=== PATIENT | female | born 1945 | race Caucasian/White ===

== ENCOUNTER → 2018-08-17 12:47 | Outpatient (CLI) | payer MEDICARE, SELFPAY ==
--- NOTE | 2018-08-17 | DI.RAD.S_ITS ---
PROCEDURE: FL UPPER GI SERIES INDICATIONS: DUODENAL ULCER COMPARISON: None. 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 No suspicious abdominal calcifications. Visualized solid organ contours appear normal. Bony structures appear unremarkable. Surgical clips are noted in the region of gallbladder fossa. Vascular surgery coils are noted in right upper quadrant abdomen just lateral to L1-2 level. Esophagus: There is normal esophageal peristalsis. No strictures, extrinsic mass effects, or diverticula. No elicited gastroesophageal reflux. No hiatal hernia. Stomach: Evaluation of stomach lumen is limited due to limited patient mobility. Stomach is normally distensible, without extrinsic mass effects. Pylorus demonstrates normal single-contrast morphology. Narrowing and slightly deformed appearance of first and second portion of duodenum is seen, which may represent scarring secondary to patient's history of duodenal ulcer. There is ready transit of contrast through the gastric outlet into the small bowel. IMPRESSION: 1. Slightly limited study due to patient's poor mobility. 2. Deformity involving the first and second portion of duodenum, likely represent scarring from prior duodenal ulcer. No gross ulceration is noted on the current study. No contrast extravasation or extraction. No significant gastroesophageal reflux. Dictated by: Lino Martinez M.D. on 08/17/2018 at 14:52 Approved by: Lino Martinez M.D. on 08/17/2018 at 14:55
== END ==
DX: K26.9 Duodenal ulcer, unspecified as acute or chronic, without hemorrhage or perforation (principal)
CPT/HCPCS: 74240

== ENCOUNTER → 2018-08-21 08:06 | Outpatient (REF) | payer MEDICARE, SELFPAY ==
[2018-08-21 08:40] LABS: BUN Creatinine Ratio 7.5 (6-22); Blood Urea Nitrogen 3 mg/dL (7-17); Calcium 7.8 mg/dL (8.4-10.2); Carbon Dioxide 26 mmol/L (22-32); Chloride 100 mmol/L (98-107); Estimated Glomerular Filt Rate > 60.0 mL/min (>60); Glucose 94 mg/dL (80-110); HEMOLYSIS < 15 (0-50); Sodium 134 mmol/L (137-145)
[2018-08-21 08:47] LABS: Hematocrit 26.5 % (36-46); Hemoglobin 8.7 g/dL (12.0-16.0); Mean Corpuscular HGB Conc 32.8 % (30-36); Mean Corpuscular Hemoglobin 28.7 PG (26-34); Mean Corpuscular Volume 87.5 fL (80-100); Platelet Count 177 X10^3/uL (150-400); Red Blood Cell Count 3.03 X10^6/uL (4.0-5.2); Red Cell Distribution Width 24.1 % (11.6-14.8)
[2018-08-21 09:00] LABS: Add Manual Diff / Slide Review YES; White Blood Cell Count 0.7 X10^3/uL (4.5-11.0)
[2018-08-21 09:01] LABS: Potassium 2.3 mmol/L (3.4-5.1)
[2018-08-21 09:35] LABS: Anisocytosis 2+; Neutrophils Absolute Manual 196 /uL (3000-5900); Poikilocytosis 2+; Total Cells Counted 50
== END ==
LOC: LAB 08:06
PROVIDERS: Visit Provider Nurse Practitioner Family
DX: E86.0 Dehydration (principal); I10 Essential (primary) hypertension
CPT/HCPCS: 80048; 85025

== ENCOUNTER → 2018-08-23 17:33 | Outpatient (REF) | payer MEDICARE, SELFPAY ==
[2018-08-23 17:53] LABS: Alanine Aminotransferase 25 IU/L (9-52); Albumin 2.1 g/dL (3.5-5.0); Albumin Globulin Ratio 0.9 (1.0-2.8); Alkaline Phosphatase 93 U/L (38-126); Aspartate Aminotransferase 21 IU/L (14-36); Bilirubin Total 0.9 mg/dL (0.2-1.3); Blood Urea Nitrogen 4 mg/dL (7-17); Carbon Dioxide 24 mmol/L (22-32); Chloride 102 mmol/L (98-107); Estimated Glomerular Filt Rate > 60.0 mL/min (>60); Globulin 2.3 g/dL (1.7-4.1); Glucose 81 mg/dL (80-110); HEMOLYSIS 42 (0-50); Potassium 3.3 mmol/L (3.4-5.1); Sodium 132 mmol/L (137-145); Total Protein 4.4 g/dL (6.3-8.2)
== END ==
LOC: LAB 17:33
PROVIDERS: Visit Provider Nurse Practitioner Family
DX: E87.6 Hypokalemia (principal); I48.91 Unspecified atrial fibrillation
CPT/HCPCS: 80053

== ENCOUNTER → 2018-10-02 08:44 | Outpatient (REF) | payer MEDICARE, SELFPAY ==
[2018-10-02 10:00] LABS: INR 1.2 (0.9-1.3); Prothrombin Time 13.5 SECONDS (10.1-12.7)
[2018-10-02 10:14] LABS: Add Manual Diff / Slide Review NO; Basophils Absolute Auto 0 /uL (0-100); Basophils Percent Auto 0.8 % (0-2); Eosinophils Absolute Auto 200 /uL (0-450); Eosinophils Percent Auto 4.8 % (2-4); Hemoglobin 10.7 g/dL (12.0-16.0); Lymphocytes Absolute Auto 400 /uL (1100-4500); Lymphocytes Percent Auto 9.7 % (25-40); Mean Corpuscular HGB Conc 33.6 % (30-36); Mean Corpuscular Volume 92.4 fL (80-100); Monocytes Absolute Auto 700 /uL (0-900); Monocytes Percent Auto 18.4 % (3-14); Neutrophils Absolute Auto 2500 /uL (1500-7000); Neutrophils Percent Auto 66.3 % (50-75); Platelet Count 148 X10^3/uL (150-400); Red Blood Cell Count 3.46 X10^6/uL (4.0-5.2); Red Cell Distribution Width 21.5 % (11.6-14.8); White Blood Cell Count 3.8 X10^3/uL (4.5-11.0)
[2018-10-02 10:28] LABS: BUN Creatinine Ratio 7.5 (6-22); Blood Urea Nitrogen 3 mg/dL (7-17); Calcium 8.4 mg/dL (8.4-10.2); Carbon Dioxide 29 mmol/L (22-32); Chloride 100 mmol/L (98-107); Estimated Glomerular Filt Rate > 60.0 mL/min (>60); Glucose 74 mg/dL (80-110); HEMOLYSIS 23 (0-50); Potassium 3.2 mmol/L (3.4-5.1); Sodium 134 mmol/L (137-145)
[2018-10-02 10:32] LABS: Anisocytosis 2+
== END ==
LOC: LAB 08:44
PROVIDERS: Visit Provider Hospitalist
DX: C81.90 Hodgkin lymphoma, unspecified, unspecified site (principal); I48.91 Unspecified atrial fibrillation
CPT/HCPCS: 36415; 80048; 85025; 85610

== ENCOUNTER → 2018-10-03 13:06 | Outpatient (CLI) | payer MEDICARE, SELFPAY ==
--- NOTE | 2018-10-03 | DI.US.S_ITS ---
PROCEDURE: US CHEST COMPARISON: [facility], CT, CT CHEST ABDOMEN PELVIS WITH CONTRAST, 09/11/2018, 16:07. INDICATIONS: PLEURAL EFFUSION FINDINGS: There is a small to moderate sized left pleural effusion. Compared to the last CT dated 09/11/2018, left pleural effusion appears unchanged. IMPRESSION: 1. Hvudw-[id number]-dwwcskid left pleural effusion, stable compared to last exam. 2. After discussing with the patient the risks and benefits of thoracentesis, the patient declined the therapeutic thoracentesis at this time. She reports no symptoms of dyspnea or chest pain. If there is worsening of clinical symptoms, a chest x-ray or ultrasound may be obtained for assessment of interval change. Thoracentesis may be obtained, if clinical symptoms develop from enlarging pleural effusions. We were unable to reach ordering physician, Dr. Hsieh (he is off today). Dictated by: Debbie Aguilar M.D. on 10/03/2018 at 15:16 Approved by: Debbie Aguilar M.D. on 10/03/2018 at 15:23
== END ==
PROVIDERS: Visit Provider Hospitalist
DX: J90 Pleural effusion, not elsewhere classified (principal)
CPT/HCPCS: 76604

== ENCOUNTER → 2018-10-10 13:40 | Outpatient (CLI) | payer MEDICARE, SELFPAY ==
--- NOTE | 2018-10-10 | DI.ECHO.S_ITS ---
[facility]+ [facility] +---------+ : : [address] [place] : : : : [id number] : : : : Phone: [phone]+ Echocardiogram Report + + :Name: MOO JEAN Study Date: 10/10/2018 Height: 66 in : :[facility] Exam Location: [facility] Weight: 218 lb : : Gender: Female BSA: 2.1 m2 : :: 1945 Age: 73 yrs BP: 115/70 mmHg: :Reason For Study: Persistent A-Fib : :Ordering Physician: Amanda Lopez : :Danny Performed By: Jazz Page : + + Interpretation Summary 1) Normal left ventricular thickness, size, wall motion, and systolic function (EF 60-65%). 2) Normal right ventricular size and function. 3) Diastolic parameters suggest a pseudonormalization pattern, consistent with probable elevated filling pressures. 4) The left atrium is moderately dilated. 5) There is mild to moderate aortic stenosis (valve area 1.2cm2, mean gradient 8.8mmHg). 6) There is a moderate left-sided pleural effusion. 7) Trace pericardial effusion present. 8) Compared to the Echo done 05/26/2018, left sided pleural effusion is present. Procedure: A two-dimensional transthoracic echocardiogram with color flow and Doppler was performed. The study quality was technically adequate. A contrast injection of Definity was performed to improve assessment of LV function. Comparison is made with the echocardiogram of 05/26/2018. The patient was in atrial fibrillation with heart rates between 88-114 bpm during the exam. Left Ventricle: The left ventricle is normal in size. There is normal left ventricular wall thickness. The ejection fraction is estimated to be 60-65%. Left ventricular systolic function is normal. There are no focal wall motion abnormalities. Diastolic parameters suggest a pseudonormalization pattern, consistent with probable elevated filling pressures. Right Ventricle: The right ventricle is normal in size and function. Atria: The left atrium is moderately dilated. Right atrial size is normal. There is no Doppler evidence for an interatrial shunt. Mitral Valve: There is mild mitral annular calcification. There is trace mitral regurgitation. Aortic Valve: The aortic valve is mildly calcified. The aortic valve is not well visualized. Leaflet mobility is mildly reduced. The peak aortic velocity is 2.0 m/sec. The peak aortic velocity on the previous exam was 2.0 m/sec. The calculated aortic valve area is 1.2 cm2. There is mild to moderate aortic stenosis. No aortic regurgitation is present. Tricuspid Valve: The tricuspid valve is normal in structure and function. There is a trace or physiologic amount of tricuspid regurgitation. Pulmonary artery pressures cannot be estimated because of the lack of a measurable TR jet velocity. Pulmonic Valve: The pulmonic valve is not well visualized. There is trace pulmonic regurgitation. Great Vessels: The aortic root is normal size. The ascending aorta is at the upper limits of normal in size. The pulmonary artery is not well visualized, but is probably normal size. The IVC is of normal diameter and collapses greater than 50% with a sniff. This suggests a low right atrial pressure of 3 mm Hg. Pericardium/ Pleura There is a trivial pericardial effusion noted. There is a moderate left-sided pleural effusion. MMode/2D Measurements & Calculations LVIDd: 4.5 cm LVOT diam: 2.0 cm LVIDs: 3.4 cm Ao root diam: 3.3 cm FS: 23.9 % asc Aorta Diam: 3.7 cm EPSS: 0.16 cm IVSd: 0.89 cm LVPWd: 0.61 cm LV chew. diameter/BSA (cm/m^2): 2.2 LV sys. diameter/BSA (cm/m^2): 1.7 LA A2 area: 27.6 cm2 RA long axis: 5.5 cm LA A4 area: 27.3 cm2 RA area: 17.3 cm2 LA length (vol): 6.7 cm RA vol: 46.7 ml LA vol: 94.9 ml RA : 22.5 ml/m2 LA vol index: 45.8 ml/m2 IVC diam: 2.0 cm RVD1 (basal): 3.1 cm TAPSE: 1.8 cm Doppler Measurements & Calculations Ao V2 max: 198.7 cm/sec LVOT Max Karl: 79.4 cm/sec Ao V2 mean: 142.0 cm/sec LV V1 max P.5 mmHg Ao max P.8 mmHg LV V1 VTI: 15.3 cm Ao mean P.8 mmHg RODRI(I,D): 1.2 cm2 Ao V2 VTI: 39.4 cm RODRI(V,D): 1.2 cm2 sev ratio: 0.39 RODRI indexed to BSA (cm^2/m^2): 0.58 MV E max karl: 128.6 cm/sec PA V2 max: 91.0 cm/sec Med Peak E' Karl: 7.2 cm/sec PA V2 mean: 63.0 cm/sec E/E' med: 17.8 PA mean P.8 mmHg Lat Peak E' Karl: 10.7 cm/sec PA Accel Time: 0.07 sec E/E' lat: 12.0 E/e' average: 14.9 MV P1/2t: 51.1 msec MV P1/2t max karl: 126.8 cm/sec SV(LVOT): 47.6 ml MVA(P1/2t): 4.3 cm2 Reading Physician:04:45 PM
== END ==
PROVIDERS: Visit Provider Internal Medicine Cardiovascular Disease
DX: I35.0 Nonrheumatic aortic (valve) stenosis (principal); I48.1 Persistent atrial fibrillation; J90 Pleural effusion, not elsewhere classified
CPT/HCPCS: 93306; Q9967

== ENCOUNTER → 2018-10-18 08:30 | Outpatient (REF) | payer MEDICARE, SELFPAY ==
[2018-10-18 09:48] LABS: Blood Urea Nitrogen 4 mg/dL (7-17); Calcium 8.8 mg/dL (8.4-10.2); Carbon Dioxide 29 mmol/L (22-32); Chloride 100 mmol/L (98-107); Estimated Glomerular Filt Rate > 60.0 mL/min (>60); Glucose 81 mg/dL (80-110); HEMOLYSIS < 15 (0-50); Potassium 3.1 mmol/L (3.4-5.1); Sodium 135 mmol/L (137-145)
== END ==
LOC: LAB 08:30
PROVIDERS: Visit Provider Hospitalist
DX: E87.1 Hypo-osmolality and hyponatremia (principal)
CPT/HCPCS: 36415; 80048

== ENCOUNTER → 2018-11-03 11:23 | Outpatient (REF) | payer MEDICARE, SELFPAY ==
[2018-11-03 13:16] LABS: Clostridium Difficile Tox PCR Positive for C. diff
== END ==
LOC: LAB 11:23
PROVIDERS: Visit Provider Hospitalist
DX: A04.72 Enterocolitis due to Clostridium difficile, not specified as recurrent (principal)
CPT/HCPCS: 87493

== ENCOUNTER → 2018-11-27 06:49 | Outpatient (REF) | payer MEDICARE, SELFPAY ==
[2018-11-27 07:05] LABS: Add Manual Diff / Slide Review NO; Basophils Absolute Auto 0 /uL (0-100); Basophils Percent Auto 0.3 % (0-2); Eosinophils Absolute Auto 100 /uL (0-450); Eosinophils Percent Auto 1.2 % (2-4); Hematocrit 34.4 % (36-46); Hemoglobin 11.3 g/dL (12.0-16.0); Lymphocytes Absolute Auto 300 /uL (1100-4500); Lymphocytes Percent Auto 4.8 % (25-40); Mean Corpuscular HGB Conc 32.8 % (30-36); Mean Corpuscular Hemoglobin 29.1 PG (26-34); Mean Corpuscular Volume 88.6 fL (80-100); Monocytes Absolute Auto 1300 /uL (0-900); Monocytes Percent Auto 19.9 % (3-14); Neutrophils Absolute Auto 4700 /uL (1500-7000); Neutrophils Percent Auto 73.8 % (50-75); Platelet Count 147 X10^3/uL (150-400); Red Blood Cell Count 3.88 X10^6/uL (4.0-5.2); Red Cell Distribution Width 18.7 % (11.6-14.8); White Blood Cell Count 6.4 X10^3/uL (4.5-11.0)
[2018-11-27 07:12] LABS: Alanine Aminotransferase 22 IU/L (9-52); Albumin 2.6 g/dL (3.5-5.0); Alkaline Phosphatase 139 U/L (38-126); Aspartate Aminotransferase 27 IU/L (14-36); Bilirubin Total 1.1 mg/dL (0.2-1.3); Blood Urea Nitrogen 6 mg/dL (7-17); Calcium 9.1 mg/dL (8.4-10.2); Carbon Dioxide 31 mmol/L (22-32); Chloride 97 mmol/L (98-107); Estimated Glomerular Filt Rate > 60.0 mL/min (>60); Globulin 2.5 g/dL (1.7-4.1); Glucose 92 mg/dL (80-110); HEMOLYSIS < 15 (0-50); Lactate Dehydrogenase 460 U/L (313-618); Potassium 3.2 mmol/L (3.4-5.1); Sodium 136 mmol/L (137-145); Total Protein 5.1 g/dL (6.3-8.2)
== END ==
LOC: LAB 06:49
PROVIDERS: Visit Provider Hospitalist
DX: I48.91 Unspecified atrial fibrillation (principal); C81.90 Hodgkin lymphoma, unspecified, unspecified site; I10 Essential (primary) hypertension
CPT/HCPCS: 36415; 80053; 83615; 85025

== ENCOUNTER → 2018-12-03 21:21 | Outpatient (REF) | payer MEDICARE, SELFPAY ==
[2018-12-03 22:21] LABS: Clostridium Difficile Tox PCR Positive for C.diff
== END ==
LOC: LAB 21:21
PROVIDERS: Visit Provider Nurse Practitioner Family
DX: Z86.19 Personal history of other infectious and parasitic diseases (principal)
CPT/HCPCS: 87493

== ENCOUNTER → 2018-12-13 10:18 | Outpatient (ROUT) | payer MEDICARE, SELFPAY ==
[2018-12-13 11:30] LABS: Hematocrit 33.1 % (36-46); Hemoglobin 10.8 g/dL (12.0-16.0); Mean Corpuscular HGB Conc 32.7 % (30-36); Mean Corpuscular Hemoglobin 28.2 PG (26-34); Platelet Count 130 X10^3/uL (150-400); Red Blood Cell Count 3.85 X10^6/uL (4.0-5.2); Red Cell Distribution Width 19.1 % (11.6-14.8); White Blood Cell Count 4.3 X10^3/uL (4.5-11.0)
[2018-12-13 11:38] LABS: Add Manual Diff / Slide Review YES
[2018-12-13 11:50] LABS: Blood Urea Nitrogen 6 mg/dL (7-17); Calcium 7.6 mg/dL (8.4-10.2); Carbon Dioxide 31 mmol/L (22-32); Chloride 93 mmol/L (98-107); Estimated Glomerular Filt Rate > 60.0 mL/min (>60); Glucose 57 mg/dL (80-110); HEMOLYSIS < 15 (0-50); Sodium 132 mmol/L (137-145)
[2018-12-13 12:36] LABS: Anisocytosis 2+; Neutrophils Absolute Manual 3182 /uL (3000-5900); Total Cells Counted 100
== END ==
PROVIDERS: Visit Provider Internal Medicine
DX: R50.9 Fever, unspecified (principal)
CPT/HCPCS: 36415; 80048; 85025

== ENCOUNTER → 2019-01-24 18:50 | Outpatient (ROUT) | payer MEDICARE, SELFPAY ==
[2019-01-24 18:59] LABS: Add Manual Diff / Slide Review NO; Basophils Absolute Auto 0 /uL (0-100); Basophils Percent Auto 0.6 % (0-2); Eosinophils Absolute Auto 0 /uL (0-450); Eosinophils Percent Auto 0.3 % (2-4); Hemoglobin 10.1 g/dL (12.0-16.0); Lymphocytes Absolute Auto 900 /uL (1100-4500); Lymphocytes Percent Auto 27.5 % (25-40); Mean Corpuscular HGB Conc 32.7 % (30-36); Mean Corpuscular Hemoglobin 27.6 PG (26-34); Mean Corpuscular Volume 84.4 fL (80-100); Monocytes Absolute Auto 400 /uL (0-900); Monocytes Percent Auto 11.8 % (3-14); Neutrophils Absolute Auto 2000 /uL (1500-7000); Neutrophils Percent Auto 59.8 % (50-75); Platelet Count 90 X10^3/uL (150-400); Red Blood Cell Count 3.67 X10^6/uL (4.0-5.2); Red Cell Distribution Width 25.3 % (11.6-14.8); White Blood Cell Count 3.3 X10^3/uL (4.5-11.0)
[2019-01-24 19:13] LABS: Blood Urea Nitrogen 13 mg/dL (7-17); Calcium 8.7 mg/dL (8.4-10.2); Carbon Dioxide 31 mmol/L (22-32); Chloride 89 mmol/L (98-107); Estimated Glomerular Filt Rate > 60.0 mL/min (>60); Glucose 60 mg/dL (80-110); HEMOLYSIS 17 (0-50); Potassium 3.8 mmol/L (3.4-5.1); Sodium 129 mmol/L (137-145)
[2019-01-24 19:35] LABS: Anisocytosis 2+; Poikilocytosis 2+; Target Cells 1+
== END ==
PROVIDERS: Visit Provider Internal Medicine
DX: E86.0 Dehydration (principal)
CPT/HCPCS: 80048; 85025